=== PATIENT | female | born 1965 | race African-American/Black ===

== ENCOUNTER → 2016-12-12 | Outpatient (CLI) | payer BC ==
[~2016-12-12] MED LIST: Aspirin PO
--- NOTE | 2016-12-13 12:31 | MAMMOGRAPHY REPORT ---
BILATERAL DIGITAL SCREENING MAMMOGRAM TOMOSYNTHESIS WITH CAD: 12/12/2016 CLINICAL HISTORY: Routine screening. Patient has no complaints. TECHNIQUE: Breast tomosynthesis in addition to standard 2D mammography was performed. Current study was also evaluated with a Computer Aided Detection (CAD) system. COMPARISON: Comparison is made to exams dated: 09/08/2015 mammogram, 09/02/2014 mammogram, 09/20/20 12 mammogram, and 09/13/2012 mammogram - [facility]. BREAST COMPOSITION: There are scattered areas of fibroglandular density in both breasts. FINDINGS: There is a newly visualized 7 mm mass in the 6:00 anterior left breast, for which additio nal targeted ultrasound and possible additional mammographic views are recommended. There is a stable circumscribed 7 mm mass in the 7:00 middle one third of the left breast. No other suspicious mass, architectural distortion or cluster of microcalcifications is seen bilaterally. IMPRESSION: ACR BI-RADS CATEGORY 0: INCOMPLETE EVALUATION: NEED ADDITIONAL IMAGING EVALUATION The newly visualized 7 mm mass in the 6:00 anterior left breast needs additional evaluation. The patient will be called to schedule an appointment. Approximately 10% of breast cancers are not detected with mammography. A negative mammographic repor t should not delay biopsy if a clinically suggestive mass is present. Mariam Hernandez M.D. ay/:12/12/2016 16:41:16 Loaf Counter: Lopez Arechiga M, [facility] letter sent: Addl Imaging 0 BI-RADS Code: ACR BI-RADS Category 0: Incomplete Evaluation: Need Additional Imaging Evaluation
== END | disposition home or self-care (01) ==
LOC: C.MAMM 09:50
PROVIDERS: ATTEND Internal Medicine
DX: Z12.31 Encounter for screening mammogram for malignant neoplasm of breast (principal); N63 Unspecified lump in breast

== ENCOUNTER → 2016-12-27 | Outpatient (CLI) | payer BC ==
--- NOTE | 2016-12-27 14:43 | MAMMOGRAPHY REPORT ---
ULTRASOUND OF BOTH BREASTS: 12/27/2016 CLINICAL HISTORY: Call back from screening mammography for a newly visualized 7 mm mass in the 6:00 anterior left breast. COMPARISON: Comparison is made to exams dated: 12/12/2016 mammogram, 09/08/2015 mammogram, 4 mammogram, 09/20/2012 mammogram, and 09/13/2012 mammogram - [facility]. FINDINGS: Real-time high-resolution sonographic evaluation was performed in the 6:00 and 7:00 axes of the left breast. In the 6:00 periareolar left breast there is a parallel anechoic lobulated lon gn simple cyst measuring 7.4 x 2.7 x 5.2 mm. This correlates in size, shape and location as the new ly visualized mammographic mass and is benign. Also seen on the recent screening mammogram is a cir cumscribed oval mass that has been relatively stable in the 6:00 to 7:00 middle one third of the lef t breast that measured 6.9 x 4.6 m. Another anechoic benign simple cyst is seen in the 6:30 left br east, 2 cm from the nipple thought to correlate with this second benign appearing mass. This cyst m easures 4.1 x 3.1 x 5.2 mm, and is also benign. IMPRESSION: ACR BI-RADS CATEGORY 2: BENIGN 2 anechoic benign simple cysts are seen in the 6:00 and 6:30 left breast. The cyst in the 6:00 axis is thought to correlate with the newly visualized mammographic mass, confirming benignity. There i s no sonographic evidence of malignancy in the left breast. Return to annual mammogram screening sc hedule is recommended. These results and recommendations were discussed with the patient at the desi e of the exam. Mariam Hernandez M.D. ay/:12/27/2016 10:50:12 Attending Technologist: Anabella OATES(R)(M), [facility] Paper Grader: Dr. Mariam Hernandez, [facility] letter sent: Normal 1/2 BI-RADS Code: ACR BI-RADS Category 2: Benign
== END | disposition home or self-care (01) ==
LOC: C.MAMM 10:24
PROVIDERS: ATTEND Internal Medicine
DX: N63 Unspecified lump in breast (principal); N60.02 Solitary cyst of left breast

== ENCOUNTER → 2017-01-09 | Day surgery (SDC) | payer BC ==
[~2017-01-09] VITALS: Ht 168.9 cm; Wt 68.2 kg
[~2017-01-09] MED LIST changes: +LIDOCAINE HCL 2% 2 ML VIAL (20MG/ML) ONE; +PROPOFOL IV EMULSION 10 MG/ML 20 ML VIAL IV ONE; +SODIUM CHLORIDE 0.9% 500ML 500 ML IV ONE
[2017-01-09 14:36] VITALS: Ht 168.9 cm; Wt 68.2 kg
--- NOTE | 2017-01-09 15:26 | Endo History and Physical ---
History & Physical Date of Service: Jan 09, 2017. Chief Complaint: family history of colon cancer Referring Physician: History of Present Illness screen' + FH CRC mother/maternal aunt Past Surgical History Hx Cardiac Surgery: No Hx Internal Defibrillator: No Hx Pacemaker: No Hx Abdominal Surgery: Yes (removal of fibroids) Hx of Implantable Prosthesis: No Hx Post-Op Nausea and Vomiting: No Hx Cancer Surgery: No Hx Thoracic Surgery: No Hx Orthopedic: No Hx Urinary Tract Surgery: No Family History Colon CA Social History Smoking Status: Never Smoker Hx Substance Use: No Hx Alcohol Use: No Allergies Coded Allergies: No Known Allergies (Verified , 01/09/17) Current Medications Reported Home Medications Medications Dose Route/Sig Max Daily Dose Days Date Category [Aspirin] 81 Mg PO DAILY 09/08/15 Reported Vital Signs Weight (Kilograms): 68.18 Height (Feet): 5 Height (Inches): 6.5 Date Time Temp Pulse Resp B/P Pulse Ox O2 Delivery O2 Flow Rate FiO2 01/09/17 15:00 36.5 59 16 100/46 100 Room Air Physical Exam AAO x3 Nl s1s2 lungs CTA Abd soft NT/ND + BS - CCE Assessment and Plan colonoscopy
--- NOTE | 2017-01-09 15:48 | Discharge Instructions ---
Endoscopy Patient Instructions Date / Procedure(s) Performed Jan 09, 2017. Colonoscopy Allergy Information Coded Allergies: No Known Allergies (Verified , 01/09/17) Discharge Date / Findings Jan 09, 2017. polyp-removed Medication Instructions Stopped Medication(s): took ASA yesterday Restart Stopped Medication(s): Reported Home Medications Medications Dose Route/Sig Max Daily Dose Days Date Category [Aspirin] 81 Mg PO DAILY 09/08/15 Reported Reported Home Medications Medications Dose Route/Sig Max Daily Dose Days Date Category [Aspirin] 81 Mg PO DAILY 09/08/15 Reported Provider Instructions Activity Restrictions - No exercising or heavy lifting for 24 hours. - Do not drink alcohol the day of the procedure. - Do not drive a car or operate machinery until the day after the procedure. - Do not make any important decisions or sign important papers in 24 hours after the procedure. Following Day: - Return to full activity which may include returning to work/school. Diet Start your diet with liquids and light foods (jello, soup, juice, toast). Then eat your usual diet if not nauseated. Treatment For Common After Affects For mild abdominal pain, bloating, or excessive gas: - Rest - Eat lightly - Lie on right side Follow-Up Information Follow-up with as scheduled Anesthesia Information What You Should Know You have had a procedure that required some medicine to reduce anxiety and discomfort. This treatment is called moderate sedation. After receiving the treatment, you may be sleepy, but you will be able to breathe on your own. The effects of the treatment may last for several hours. Follow these instructions along with Activity/Diet recommendations noted above: * Do NOT do anything where dizziness or clumsiness would be dangerous. * Rest quietly at home today, then you can be up and about tomorrow. * Have a responsible person stay with you the rest of today. * You may have had an I.V. today. If so, you may take the dressing off later today. Recommendations Call your doctor if: * Trouble breathing * Continuous vomiting for more than 24 hours * Temperature above 101 degrees * Severe abdominal pain or bloating * Pain not relieved by pain medicine ordered * There is increased drainage or redness from any incision * A large amount of rectal bleeding greater than 2-3 tablespoons. (If you had a polyp/s removed or have hemorrhoids, a small amount of blood - from the rectum is to be expected.) * You have any unanswered questions or concerns. IN THE EVENT OF A SERIOUS EMERGENCY, GO TO THE NEAREST EMERGENCY ROOM Your discharge instructions were prepared by provider Guanako Ye. Patient Instructions Signature Page Aris Schwartz Patient (or Guardian) Signature/Date: I have read and understand the instructions given to me by my caregivers. Caregiver/RN/Doctor Signature/Date: The above-named patient and/or guardian has received patient instructions on this date. + Original Patient Signature Page (only) stays with chart. Please make copy for patient.
--- NOTE | 2017-01-09 15:55 | GI REPORT ---
Procedure Date: 01/09/2017 3:13 PM Procedure: Colonoscopy Indications: This is the patient's first colonoscopy, Family history of colon cancer in a first-degree relative, Family history of colon cancer in a distant relative Medicines: Propofol per Anesthesia Complications: No immediate complications. Estimated blood loss: Minimal. Estimated Blood Loss: Estimated blood loss was minimal. Procedure: Pre-Anesthesia Assessment: - Prior to the procedure, a History and Physical was performed, and patient medications and allergies were reviewed. The patient's tolerance of previous anesthesia was also reviewed. The risks and benefits of the procedure and the sedation options and risks were discussed with the patient. All questions were answered, and informed consent was obtained. Prior Anticoagulants: The patient has taken no previous anticoagulant or antiplatelet agents. ASA Grade Assessment: I - A normal, healthy patient. After reviewing the risks and benefits, the patient was deemed in satisfactory condition to undergo the procedure. After I obtained informed consent, the scope was passed under direct vision. Throughout the procedure, the patient's blood pressure, pulse, and oxygen saturations were monitored continuously. The scope was introduced through the anus and advanced to the terminal ileum, with identification of the appendiceal orifice and IC valve. The colonoscopy was performed without difficulty. The patient tolerated the procedure well. The quality of the bowel preparation was good. Findings: The perianal and digital rectal examinations were normal. Pertinent negatives include normal sphincter tone, no palpable rectal lesions and no anal lesion or abnormality was detected. Two sessile polyps were found in the rectum. The polyps were 3 to 5 mm in size. These polyps were removed with a cold snare. Resection and retrieval were complete. Estimated blood loss was minimal. Verification of patient identification for the specimen was done by the physician and audio visual technician using the patient's name and medical record number. The exam was otherwise without abnormality. The terminal ileum appeared normal. The retroflexed view of the distal rectum and anal verge was normal and showed no anal or rectal abnormalities. Impression: - Two 3 to 5 mm polyps in the rectum, removed with a cold snare. Resected and retrieved. - The examination was otherwise normal. - The examined portion of the ileum was normal. - The distal rectum and anal verge are normal on retroflexion view. Recommendation: - Discharge patient to home (ambulatory). - Resume regular diet. - Continue present medications. - Await pathology results. - Repeat colonoscopy for surveillance based on pathology results. - Return to referring physician as previously scheduled. MD Guanako Mayes MD 01/09/2017 3:54:15 PM This report has been signed electronically. Note Initiated On: 01/09/2017 3:13 PM I attest to the content of the Intraoperative Record and orders documented therein, exceptions below
[2017-01-09 16:22] VITALS: BP 111/78; PULSE 59; O2SAT 100
--- NOTE | 2017-01-09 16:43 | Anesthesiology Progress Note ---
Anesthesia Post Op Note Date & Time Jan 09, 2017 at 16:42 Vital Signs Pain Intensity: 0 Vital Signs Past 12 Hours Date Time Temp Pulse Resp B/P Pulse Ox O2 Delivery O2 Flow Rate FiO2 01/09/17 16:22 59 16 111/78 100 Room Air 01/09/17 16:11 54 99/61 100 Room Air 01/09/17 15:55 130/76 01/09/17 15:52 65 16 90/61 100 Room Air 01/09/17 15:00 36.5 59 16 100/46 100 Room Air Notes Mental Status: alert / awake / arousable, participated in evaluation Pt Amnestic to Procedure: Yes Nausea / Vomiting: adequately controlled Pain: adequately controlled Airway Patency, RR, SpO2: stable & adequate BP & HR: stable & adequate Hydration State: stable & adequate Anesthetic Complications: no major complications apparent
== END | disposition home or self-care (01) ==
LOC: C.GI 14:41
PROVIDERS: ATTEND Internal Medicine Gastroenterology
DX: Z12.11 Encounter for screening for malignant neoplasm of colon (principal); D12.8 Benign neoplasm of rectum; Z80.0 Family history of malignant neoplasm of digestive organs

== ENCOUNTER 2019-03-25 05:37 | Inpatient (IN) ==
[2019-03-25] MEDS ORDERED: ONDANSETRON INJ 2 MG/ML 2 ML VIAL IV STA (05:55)
[2019-03-25] MEDS ORDERED: KETOROLAC TROMETHAMINE 15 MG/ML VIAL IV STA (05:55)
--- NOTE | 2019-03-25 05:59 | Emergency Department Note ---
History of Present Illness General Chief complaint: Abdominal Pain Stated complaint: STOMACH PAIN Source: patient Mode of arrival: ambulatory Limitations: no limitations History of Present Illness Maximum Pain Intensity: 8 This patient is a 54-year-old female who presents to the emergency department complaining of abdominal pain. The patient reports that her pain started approximately 5 hours ago. She states that the pain woke her up from sleep. She reports diffuse abdominal pain and she rates this discomfort an 8/10. She has been nauseous and had one episode of vomiting. She took some Tums without improvement. She states that she felt okay prior to going to bed last night. She denies any diarrhea, fevers or urinary symptoms. She denies any history of abdominal issues or surgeries. Home Medications Home Medications Medication Instructions Recorded Confirmed Type aspirin [Aspirin Low Dose] PO DAILY 03/25/19 History Allergies Allergy/AdvReac Type Severity Reaction Status Date / Time No Known Allergies Allergy Verified 03/25/19 06:22 Past Med/Surg History Medical History CVA (cerebral vascular accident) Partial small bowel obstruction (Acute) Hepatitis B carrier (Chronic 05/07/11) Protein S deficiency disease (Chronic 05/07/11) No significant active problems Surgical History History of H/O myomectomy Social History Preferred Language: Ug[place] Communication Ability: Effective 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 Beliefs That Will Affect Care: None Current Living Situation: Spouse and Family Other Information That Helps Us Care for You: No Feels Safe at Home: Yes Safety Concerns: Feels Safe At This Time Smoking Status: Never smoker Do You Dip or Chew Tobacco: No Second Hand Exposure: No Tobacco Cessation Education Requested by Patient: No Hx Alcohol Use: No Hx Substance Use: No Review of Systems A total of 10 systems reviewed and were otherwise negative Physical Exam Vital Signs Vital Signs - 24 hr 03/25/19 05:40 03/25/19 06:41 03/25/19 08:16 Temperature 36.5 C 36.5 C Temperature Source Oral Oral Sepsis Recent Fever Within 48 Hours No Sepsis New/Unexplained Change in Mental Status No Sepsis Action Taken by Nursing No Action Required Pulse Rate 63 Pulse Rate [Finger] 59 L 67 Respiratory Rate 16 18 16 Respiratory Effort / Characteristics Non-Labored Spontaneous Non-Labored Spontaneous Respiratory Depth Normal Normal Normal Respiratory Pattern Regular Blood Pressure 116/60 Blood Pressure [Right Arm] 99/52 L 111/70 Blood Pressure Mean 78 Blood Pressure Mean [Right Arm] 67 83 Blood Pressure Position [Right Arm] Lying Pulse Oximetry 100 99 100 Oxygen Delivery Method Room Air Room Air Room Air 03/25/19 09:45 Temperature Temperature Source Sepsis Recent Fever Within 48 Hours Sepsis New/Unexplained Change in Mental Status Sepsis Action Taken by Nursing Pulse Rate Pulse Rate [Finger] 65 Respiratory Rate 16 Respiratory Effort / Characteristics Respiratory Depth Respiratory Pattern Blood Pressure Blood Pressure [Right Arm] 104/60 Blood Pressure Mean Blood Pressure Mean [Right Arm] 74 Blood Pressure Position [Right Arm] Pulse Oximetry 100 Oxygen Delivery Method Room Air VITALS: Vitals are noted on the nurse's note and reviewed by myself. Vital signs stable. GENERAL: This is a 54-year-old female, in no acute distress, nondiaphoretic, well-developed well-nourished. SKIN: The skin was without rashes. EYES: Pupils equal round and reactive to light and accommodation. MOUTH: Mucous membranes moist. Tonsils are not enlarged. Pharynx without erythema or exudate. NECK: Supple without nuchal rigidity. No lymphadenopathy. HEART: Regular rate and rhythm without murmurs gallops or rubs. LUNGS: Clear to auscultation bilaterally without wheezes, rales or rhonchi. ABDOMEN: Positive bowel sounds x 4. Soft, nondistended. There is tenderness to palpation in the suprapubic region of the abdomen. No guarding or rebound tenderness. EXTREMITIES: No peripheral edema. NEURO: Patient was alert and oriented to person place and time. Course Consultations Consultation #1: Dr. Tanner - General surgery Consultation #2: Delma Fajardo - [facility] [place] Administered Medications Sodium Chloride (Nss 1000ml) 1,000 mls @ 80 mls/hr IV .[id number] PARVEZ Stop: 04/24/19 11:12 Last Admin: 03/26/19 00:05 Dose: 80 mls/hr Documented by: [id number] Infusion: 03/26/19 00:05 Dose: 80 mls/hr Documented by: [id number] Infusion: 03/25/19 22:29 Dose: 80 mls/hr Documented by: [id number] Admin: 03/25/19 11:40 Dose: 80 mls/hr Documented by: [id number] Polyethylene Glycol (Miralax Powder Packet) 17 gm PO DAILY PARVEZ Stop: 04/24/19 11:59 Last Admin: 03/25/19 11:48 Dose: 17 gm Documented by: [id number] Discontinued Medications Bisacodyl (Dulcolax) 10 mg KS NOW STA Stop: 03/25/19 11:14 Last Admin: 03/25/19 11:47 Dose: 10 mg Documented by: [id number] Sodium Chloride (Nss 1000ml) 1,000 mls @ 999 mls/hr IV .Q1H1M ONE Stop: 03/25/19 08:09 Last Infusion: 03/25/19 08:50 Dose: 0 mls/hr Documented by: [id number] Admin: 03/25/19 07:17 Dose: 999 mls/hr Documented by: [id number] Ioversol (Optiray 320 100ml) 93 ml IV ONCE PRN PRN Reason: Interaction Checking Stop: 03/29/19 06:36 Last Admin: 03/25/19 06:37 Dose: 93 ml Documented by: [id number] Ketorolac Tromethamine (Toradol) 15 mg IV NOW STA Stop: 03/25/19 05:56 Last Admin: 03/25/19 06:11 Dose: 15 mg Documented by: [id number] Ondansetron HCl (Zofran) 4 mg IV NOW STA Stop: 03/25/19 05:56 Last Admin: 03/25/19 06:11 Dose: 4 mg Documented by: [id number] Polyethylene Glycol (Miralax Powder Packet) 238 gm PO TODAY@1530 PARVEZ Stop: 03/25/19 23:59 Last Admin: 03/25/19 16:46 Dose: 238 gm Documented by: [id number] Medical Decision Making Differential Diagnosis Differential diagnosis includes diverticulitis, colitis, UTI, kidney stone, uterine fibroids, ovarian cyst, among others. Home Medications Current Medication List: was personally reviewed by me Laboratory Data Attestation: I reviewed the patient's lab results. Result diagrams: 03/25/19 06:06 03/25/19 06:06 Lab Results 03/25/19 03/25/19 03/25/19 Range/Units 05:50 05:50 06:06 WBC 3.96 L (4.8-10.8) K/uL RBC 4.08 L (4.2-5.4) M/uL Hgb 12.0 (12.0-16.0) g/dL Hct 36.0 L (37-47) % MCV 88.2 (80-100) fL MCH 29.4 (25-34) pg MCHC 33.3 (32-36) g/dL RDW Std Deviation 40.8 (36.4-46.3) fL RDW Coeff of Grayson 12.7 (11.5-14.5) % Plt Count 227 (130-400) K/uL MPV 10.4 (7.4-10.4) fL Immature Gran % (Auto) 0.0 % Neut % (Auto) 57.7 % Lymph % (Auto) 35.9 % Crawford % (Auto) 5.3 % Eos % (Auto) 0.8 % Baso % (Auto) 0.3 % Immature Gran # (Auto) 0.00 (0.00-0.02) K/uL Neut # (Auto) 2.29 (1.4-6.5) K/uL Lymph # (Auto) 1.42 (1.2-3.4) K/uL Crawford # (Auto) 0.21 (0.11-0.59) K/uL Eos # (Auto) 0.03 (0-0.5) K/uL Baso # (Auto) 0.01 (0-0.2) K/uL Sodium (136-145) mmol/L Potassium (3.5-5.1) mmol/L Chloride (98-107) mmol/L Carbon Dioxide (21-32) mmol/L Anion Gap (3-11) BUN (7-18) mg/dl Creatinine (0.6-1.2) mg/dl Est Cr Clr Drug Dosing ml/min Est GFR ( Amer) Est GFR (Non-Af Amer) BUN/Creatinine Ratio (10-20) Glucose (70-99) mg/dl Calcium (8.5-10.1) mg/dl Total Bilirubin (0.2-1) mg/dl AST (15-37) U/L ALT (12-78) U/L Alkaline Phosphatase (45-117) U/L Total Protein (6.4-8.2) gm/dl Albumin (3.4-5.0) gm/dl Globulin (2.5-4.0) gm/dl Albumin/Globulin Ratio (0.9-2) Lipase (73-393) U/L Urine Color Yellow Urine Appearance Slightly Cloudy (Clear) Urine pH 8.0 H (4.5-7.5) Ur Specific [place] 1.015 (1.000-1.030) Urine Protein Negative (Negative) Urine Glucose (UA) Negative (Negative) Urine Ketones Negative (Negative) Urine Blood Negative (Negative) Urine Nitrite Negative (Negative) Urine Bilirubin Negative (Negative) Urine Urobilinogen Negative (Negative) Ur Leukocyte Esterase Negative (Negative) Urine Test Negative (Negative) 03/25/19 Range/Units 06:06 WBC (4.8-10.8) K/uL RBC (4.2-5.4) M/uL Hgb (12.0-16.0) g/dL Hct (37-47) % MCV (80-100) fL MCH (25-34) pg MCHC (32-36) g/dL RDW Std Deviation (36.4-46.3) fL RDW Coeff of Grayson (11.5-14.5) % Plt Count (130-400) K/uL MPV (7.4-10.4) fL Immature Gran % (Auto) % Neut % (Auto) % Lymph % (Auto) % Crawford % (Auto) % Eos % (Auto) % Baso % (Auto) % Immature Gran # (Auto) (0.00-0.02) K/uL Neut # (Auto) (1.4-6.5) K/uL Lymph # (Auto) (1.2-3.4) K/uL Crawford # (Auto) (0.11-0.59) K/uL Eos # (Auto) (0-0.5) K/uL Baso # (Auto) (0-0.2) K/uL Sodium 141 (136-145) mmol/L Potassium 3.7 (3.5-5.1) mmol/L Chloride 106 (98-107) mmol/L Carbon Dioxide 32 (21-32) mmol/L Anion Gap 3.0 (3-11) BUN 16 (7-18) mg/dl Creatinine 0.70 (0.6-1.2) mg/dl Est Cr Clr Drug Dosing 91.4 ml/min Est GFR ( Amer) 115.5 Est GFR (Non-Af Amer) 99.6 BUN/Creatinine Ratio 22.3 H (10-20) Glucose 88 (70-99) mg/dl Calcium 9.3 (8.5-10.1) mg/dl Total Bilirubin 0.5 (0.2-1) mg/dl AST 17 (15-37) U/L ALT 22 (12-78) U/L Alkaline Phosphatase 76 (45-117) U/L Total Protein 7.9 (6.4-8.2) gm/dl Albumin 3.8 (3.4-5.0) gm/dl Globulin 4.1 H (2.5-4.0) gm/dl Albumin/Globulin Ratio 0.9 (0.9-2) Lipase 98 (73-393) U/L Urine Color Urine Appearance (Clear) Urine pH (4.5-7.5) Ur Specific [place] (1.000-1.030) Urine Protein (Negative) Urine Glucose (UA) (Negative) Urine Ketones (Negative) Urine Blood (Negative) Urine Nitrite (Negative) Urine Bilirubin (Negative) Urine Urobilinogen (Negative) Ur Leukocyte Esterase (Negative) Urine Test (Negative) Imaging Data Attestation: I personally reviewed and interpreted this imaging study as follows: Radiologist's Impression: CT abd pelvis IV con only FINDINGS: Lower chest: There are minor dependent atelectatic changes. Liver: There is a 7 mm left lobe hypodensity, likely representing a cyst. Gallbladder: Unremarkable. Spleen: Normal in size and attenuation. Pancreas: Unremarkable. Adrenal glands: Unremarkable. Kidneys: There is symmetric renal cortical enhancement. The kidneys are normal in size without hydronephrosis. Bowel: There is fecal retention. There is no evidence for acute diverticulitis. The appendix appears normal. There are dilated small bowel loops with mild wall thickening. The distal ileum is of normal caliber. The findings are likely secondary to a early/partial small bowel obstruction, although a focal small bowel enteritis could potentially appear similar. There is a slight mesenteric swirl pattern and the distal ileum appears somewhat stretched. An internal hernia cannot be excluded. Clinical and imaging follow-up is recommended. Peritoneum: There is trace free pelvic fluid. No free intraperitoneal air is visualized Vasculature: The abdominal aorta is normal in course and caliber. Adenopathy: None. Pelvic viscera: The bladder, and pelvic viscera are unremarkable. Skeletal structures: No destructive osseous lesions are seen. IMPRESSION: 1. Mildly dilated proximal and mid abdominal small bowel loops with normal caliber distal small bowel. There is associated mild bowel wall thickening. The findings are likely secondary to an early/partial small bowel obstruction 2. Normal appendix 3. No evidence of acute diverticulitis 4. Fecal retention 5. No evidence of free intraperitoneal air Blood Pressure Blood Pressure Findings: Normal blood pressure Blood Pressure Disposition: did not require urgent referral MDM Narrative The patient is a 54-year-old female who presents today complaining of abdominal pain and vomiting. Labs revealed no leukocytosis or concerning anemia. There were no concerning electrolyte abnormalities. Kidney function within normal limits. Urinalysis not suggestive of infection. CT scan was performed and shows evidence of a partial or early small bowel obstruction. General surgery was consulted and recommended admission to the hospitalist. The [facility] hospitalist service was consulted and agrees to evaluate the patient for admission/observation. Impression & Plan Partial small bowel obstruction Discharge Plan Visit Data *Final* Discharge Date/Time: 03/25/19 10:43 Chief Complaint: Abdominal Pain Stated Complaint: STOMACH PAIN ED Provider: [facility] ED Midlevel Provider: Nadya Segovia Discharge Problem: Partial small bowel obstruction Patient Disposition: Admitted As Inpatient Discharge Instructions Interventions: ED Discharge Assessment Last Done: 03/25/19 10:43
[2019-03-25 06:06] LABS: Appearance Urine Slightly Cloudy (Clear); Bilirubin Urine Negative (Negative); Blood Urine Negative (Negative); Color Urine Yellow; Glucose Urine UA Negative (Negative); Ketones Urine Negative (Negative); Leukocyte Esterase Urine Negative (Negative); Nitrite Urine Negative (Negative); Protein Urine Negative (Negative); Specific Gravity Urine 1.015 (1.000-1.030); Urobilinogen Urine Negative (Negative)
[2019-03-25 06:09] LABS: Pregnancy Test, Urine Negative (Negative)
[2019-03-25 06:14] LABS: Basophils # (auto) 0.01 K/uL (0-0.2); Basophils % (auto) 0.3 %; Eosinophils # (auto) 0.03 K/uL (0-0.5); Eosinophils % (auto) 0.8 %; Lymphocytes # (auto) 1.42 K/uL (1.2-3.4); Lymphocytes % (auto) 35.9 %; Mean Corpuscular Hgb Conc 33.3 g/dL (32-36); Mean Corpuscular Volume 88.2 fL (80-100); Mean Platelet Volume 10.4 fL (7.4-10.4); Monocytes # (auto) 0.21 K/uL (0.11-0.59); Monocytes % (auto) 5.3 %; Neutrophils # (auto) 2.29 K/uL (1.4-6.5); Neutrophils % (auto) 57.7 %; Platelet Count 227 K/uL (130-400); RDW Coefficient of Variation 12.7 % (11.5-14.5); RDW Standard Deviation 40.8 fL (36.4-46.3); Red Blood Count 4.08 M/uL (4.2-5.4); White Blood Count 3.96 K/uL (4.8-10.8)
[2019-03-25 06:31] LABS: Albumin Level 3.8 gm/dl (3.4-5.0); BUN Creatinine Ratio 22.3 (10-20); Calcium 9.3 mg/dl (8.5-10.1); Creatinine Clr Calc Pharmacy 91.4 ml/min; Est GFR (African American) 115.5; Est GFR (Non-African American) 99.6; Potassium 3.7 mmol/L (3.5-5.1)
[2019-03-25 06:34] LABS: Albumin Globulin Ratio 0.9 (0.9-2); Bilirubin,Total 0.5 mg/dl (0.2-1); Globulin 4.1 gm/dl (2.5-4.0); Total Protein 7.9 gm/dl (6.4-8.2)
[2019-03-25] MEDS ORDERED: IOVERSOL 100ml IV PRN (06:37)
--- NOTE | 2019-03-25 06:57 | CT Scan Report ---
CT abd pelvis IV con only CLINICAL HISTORY: Abdominal pain and vomiting COMPARISON STUDY: None. TECHNIQUE: The patient was scanned in a dynamic helical fashion during intravenous administration of 93 cc of Optiray 320. A dose lowering technique was utilized adhering to the principles of ALARA. CT DOSE: 330.63 mGy.cm FINDINGS: Lower chest: There are minor dependent atelectatic changes. Liver: There is a 7 mm left lobe hypodensity, likely representing a cyst. Gallbladder: Unremarkable. Spleen: Normal in size and attenuation. Pancreas: Unremarkable. Adrenal glands: Unremarkable. Kidneys: There is symmetric renal cortical enhancement. The kidneys are normal in size without hydron ephrosis. Bowel: There is fecal retention. There is no evidence for acute diverticulitis. The appendix appears normal. There are dilated small bowel loops with mild wall thickening. The distal ileum is of normal caliber. The findings are likely secondary to a early/partial small bowel obstruction, although a foc al small bowel enteritis could potentially appear similar. There is a slight mesenteric swirl pattern and the distal ileum appears somewhat stretched. An internal hernia cannot be excluded. Clinical and imaging follow-up is recommended. Peritoneum: There is trace free pelvic fluid. No free intraperitoneal air is visualized Vasculature: The abdominal aorta is normal in course and caliber. Adenopathy: None. Pelvic viscera: The bladder, and pelvic viscera are unremarkable. Skeletal structures: No destructive osseous lesions are seen. IMPRESSION: 1. Mildly dilated proximal and mid abdominal small bowel loops with normal caliber distal small bowel . There is associated mild bowel wall thickening. The findings are likely secondary to an early/parti al small bowel obstruction 2. Normal appendix 3. No evidence of acute diverticulitis 4. Fecal retention 5. No evidence of free intraperitoneal air Electronically signed by: Gasper Bay M.D. 03/25/2019 6:56 AM
[2019-03-25] MEDS ORDERED: SODIUM CHLORIDE 0.9% 1000ML 1,000 ML IV ONE (07:09)
--- NOTE | 2019-03-25 10:19 | History & Physical Report ---
Date of Service March 25, 2019 Assessment & Plan (1) Constipation: (2) Partial small bowel obstruction: - Admit to med surg - General Surgery consulted - spoke with Dr. Tanner. He requests admission to medical service - Pt with multiple previous abd surgeries, possible partial SBO seen but may be more likely severe constipation as seen on CT scan, no electrolyte abnormalities, no WBC, nausea improved with zofran, minimal abd pain currently. - Will do conservative measures for now -- Allow clears, Miralax, Dulcolax pr now (3) H/O myomectomy: - 2009, noted (4) History of : - x 1 in 2010 (5) CVA (cerebral vascular accident): - 2007 - Takes ASA 81 mg daily, continue - No residual symptoms (6) Protein S deficiency disease: - Noted (7) Hepatitis B carrier: - Noted, stable. (8) DVT prophylaxis: Teds, ambulatory. History of Present Illness Primary Care Provider: Rom Hoffman MD This is a 54 yo F with PMHx of Myomectomy in 2009, history of in 2010, stroke in 2007 which she is on a baby aspirin daily for, protein S deficiency, and hepatitis B carrier who presents with acute onset abdominal pain around 1 AM this morning. Patient has never had abdominal pain like this before. States that it awoke her from sleep and is located in the RLQ and comes in waves. She had one episode of vomiting this morning, no dry heaves or diarrhea. Patient denies hematemesis, melena, bright red blood per rectum. She has felt mildly constipated but had a small bowel movement yesterday morning. On CT scan there is a possible partial small bowel obstruction. Electrolytes and CBC are WNL. General surgery service was contacted by the ER and are on consult. Allergies Allergy/AdvReac Type Severity Reaction Status Date / Time No Known Allergies Allergy Verified 03/25/19 06:22 Home Medications Home Medications Medication Instructions Recorded Confirmed Type aspirin [Aspirin Low Dose] PO DAILY 03/25/19 History Past Med/Surg History Medical History CVA (cerebral vascular accident) Partial small bowel obstruction (Acute) Hepatitis B carrier (Chronic 05/07/11) Protein S deficiency disease (Chronic 05/07/11) No significant active problems Surgical History History of H/O myomectomy Social History Preferred Language: Maltese Communication Ability: Effective 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 Beliefs That Will Affect Care: None Current Living Situation: Spouse and Family Other Information That Helps Us Care for You: No Feels Safe at Home: Yes Safety Concerns: Feels Safe At This Time Smoking Status: Never smoker Do You Dip or Chew Tobacco: No Second Hand Exposure: No Tobacco Cessation Education Requested by Patient: No Hx Alcohol Use: No Hx Substance Use: No Review of Systems Review of Systems: Constitutional: No fever, sweats or chills Eyes: No diplopia, no worsening or blurred vision ENT: normal hearing, no trouble swallowing Respiratory: No cough, sputum, dyspnea at rest or on exertion Cardiovascular: No chest pain, tightness or palpitations Abdomen: As per HPI Musculoskeletal: No joint pain, calf pain, swelling Neurologic: No weakness, numbness/tingling, or balance problems Psychiatric: No anxiety or depression Skin: No rash or itch Physical Exam Physical Exam: General: awake, alert, no apparent distress, -[place] female, appears much younger than stated age. Head: Normocephalic, atraumatic ENT: PERRL, EOMI, no pharyngeal exudate, mucous membranes moist Chest: Clear to auscultation, on room air, no adventitious breath sounds Cardiac: Regular rate and rhythm, no murmur, no JVD, normal peripheral pulses, good capillary refill Abdominal: Hypoactive x 4 quadrants, soft, mildly distended on the right side, minimally tender to palpation in the RLQ, no rebound, guarding. Extremities: Normal inspection, no peripheral edema or erythema, calfs nontender to palpation Psych: Normal mood and affect Neuro: AAO x 3, strength intact bilaterally and related 5/5, no motor deficits, speech is clear, no peripheral sensory deficits Skin: no rash or erythema Results & Data Vital Signs (Past 12 Hours) Vital Signs Temp Pulse Pulse Resp BP BP Pulse Ox 03/25/19 09:45 65 16 104/60 100 03/25/19 08:16 36.5 C 67 16 111/70 100 03/25/19 06:41 59 L 18 99/52 L 99 03/25/19 05:40 36.5 C 63 16 116/[address] abd pelvis IV con only CLINICAL HISTORY: Abdominal pain and vomiting COMPARISON STUDY: None. TECHNIQUE: The patient was scanned in a dynamic helical fashion during intravenous administration of 93 cc of Optiray 320. A dose lowering technique was utilized adhering to the principles of ALARA. CT DOSE: 330.63 mGy.cm FINDINGS: Lower chest: There are minor dependent atelectatic changes. Liver: There is a 7 mm left lobe hypodensity, likely representing a cyst. Gallbladder: Unremarkable. Spleen: Normal in size and attenuation. Pancreas: Unremarkable. Adrenal glands: Unremarkable. Kidneys: There is symmetric renal cortical enhancement. The kidneys are normal in size without hydronephrosis. Bowel: There is fecal retention. There is no evidence for acute diverticulitis. The appendix appears normal. There are dilated small bowel loops with mild wall thickening. The distal ileum is of normal caliber. The findings are likely secondary to a early/partial small bowel obstruction, although a focal small bowel enteritis could potentially appear similar. There is a slight mesenteric swirl pattern and the distal ileum appears somewhat stretched. An internal hernia cannot be excluded. Clinical and imaging follow-up is recommended. Peritoneum: There is trace free pelvic fluid. No free intraperitoneal air is visualized Vasculature: The abdominal aorta is normal in course and caliber. Adenopathy: None. Pelvic viscera: The bladder, and pelvic viscera are unremarkable. Skeletal structures: No destructive osseous lesions are seen. IMPRESSION: 1. Mildly dilated proximal and mid abdominal small bowel loops with normal caliber distal small bowel. There is associated mild bowel wall thickening. The findings are likely secondary to an early/partial small bowel obstruction 2. Normal appendix 3. No evidence of acute diverticulitis 4. Fecal retention 5. No evidence of free intraperitoneal air Supervising Physician Co-Signing Physician Notes PA Physician Supervision Note: I interviewed and examined the patient. Discussed with Tara Fajardo PAC and agree with findings and plan as documented in the note. Any exceptions or clarifications are listed here: None Patient was seen and interviewed in the emergency department presence of her . She only has mild abdominal pain. She notes she has constipation as medical problems. Her pain is been improved after being medicated. Pain was mostly below her bellybutton. Signs were reviewed abdomen is with hypoactive bowel sounds soft and only tender to deep palpation of lower quadrants. I personally reviewed CT scan it looks to be that there is a significant amount of fecal burden in her abdomen Patient be brought in for small bowel obstruction with conservative management and attempt to increase in stool production Documented By: Jamaal Washington PG Care Time/CCT Total # of Minutes Spent Total Time Spent with Patient: Total time spent is greater than 50% in coordination of care (as documented) at patient's floor/unit and/or counseling patient:
--- NOTE | 2019-03-25 10:59 | Surgery Consultation ---
Date of Consultation March 25, 2019 Assessment & Plan (1) Partial small bowel obstruction: pt is a 54 year-old female who presents to ER with one day history abdominal pain, IMP: abdominal pain, possible GI infection, or partial SBO Plan, I agree with hospitalist admit pt to hospital medical treatment first, NPO, IV fluid, consult GI to R/O IBD repeat labs in am, will F/U History of Present Illness History of Present Illness CC: abdominal pain HPI: pt is a 54 year old female who presents to ER with one day history acute abdominal pain with nausea and vomiting, the pain is located at [place]-umbilical area, now pt said she feels much better, no significant abdominal pain now, last BM yesterday, pt denies fever, no bloody stool, no diarrhea, pt had CT scan at Er dx possible partial SBO, Allergies Allergy/AdvReac Type Severity Reaction Status Date / Time No Known Allergies Allergy Verified 03/25/19 06:22 Home Medications Home Medications Medication Instructions Recorded Confirmed Type aspirin [Aspirin Low Dose] PO DAILY 03/25/19 History Patient History Medical History CVA (cerebral vascular accident) Partial small bowel obstruction (Acute) Hepatitis B carrier (Chronic 05/07/11) Protein S deficiency disease (Chronic 05/07/11) No significant active problems Surgical History History of H/O myomectomy Social History Preferred Language: Belizean Communication Ability: Effective 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 Beliefs That Will Affect Care: None Current Living Situation: Spouse and Family Other Information That Helps Us Care for You: No Feels Safe at Home: Yes Safety Concerns: Feels Safe At This Time Smoking Status: Never smoker Do You Dip or Chew Tobacco: No Second Hand Exposure: No Tobacco Cessation Education Requested by Patient: No Hx Alcohol Use: No Hx Substance Use: No Review of Systems Review of Systems: All systems reviewed & are unremarkable except as noted in HPI & below Constitutional: as per Subjective / HPI Ear, Nose, Mouth, Throat: as per Subjective / HPI Respiratory: as per Subjective / HPI Cardiovascular: as per Subjective / HPI Gastrointestinal: as per Subjective / HPI Genitourinary: as per Subjective / HPI Musculoskeletal: as per Subjective / HPI Neurologic: as per Subjective / HPI Psychiatric: as per Subjective / HPI Endocrine: as per Subjective / HPI Hematologic / Lymphatic: as per Subjective / HPI Physical Exam Constitutional: WD/WN, vitals as above well developed and well nourished ENMT: external ear and nose normal, oropharynx normal Neck: trachea midline, no thyromegaly Respiratory: normal respiratory effort, lungs clear to auscultation normal respiratory effort Cardiovascular: RRR, no murmur, no edema Rate/Rhythm: regular rate and regular rhythm Heart Sounds: normal S2 Gastrointestinal (Abdomen): normal bowel sounds, soft, nontender, no hepatosplenomegaly Inspection/Auscultation: abdomen normal to inspection no tenderness now, no distend Neurologic: patellar DTR's 2+ bilat, sensation intact Psychiatric: A+Ox3, euthymic affect Orientation: alert and oriented x 3 Lymphatic: no cervical or axillary lymphadenopathy Results & Data Vital Signs (Past 12 Hours) Vital Signs Temp Pulse Pulse Resp BP BP Pulse Ox 03/25/19 10:40 61 16 100/53 L 100 03/25/19 09:45 65 16 104/60 100 03/25/19 08:16 36.5 C 67 16 111/70 100 03/25/19 06:41 59 L 18 99/52 L 99 03/25/19 05:40 36.5 C 63 16 116/60 100 Laboratory Results Abnormal lab results 03/25/19 03/25/19 03/25/19 Range/Units 05:50 06:06 06:06 WBC 3.96 L (4.8-10.8) K/uL RBC 4.08 L (4.2-5.4) M/uL Hct 36.0 L (37-47) % BUN/Creatinine Ratio 22.3 H (10-20) Globulin 4.1 H (2.5-4.0) gm/dl Urine pH 8.0 H (4.5-7.5) Diagnostic Findings CT abd pelvis IV con only CLINICAL HISTORY: Abdominal pain and vomiting COMPARISON STUDY: None. TECHNIQUE: The patient was scanned in a dynamic helical fashion during intravenous administration of 93 cc of Optiray 320. A dose lowering technique was utilized adhering to the principles of ALARA. CT DOSE: 330.63 mGy.cm FINDINGS: Lower chest: There are minor dependent atelectatic changes. Liver: There is a 7 mm left lobe hypodensity, likely representing a cyst. Gallbladder: Unremarkable. Spleen: Normal in size and attenuation. Pancreas: Unremarkable. Adrenal glands: Unremarkable. Kidneys: There is symmetric renal cortical enhancement. The kidneys are normal in size without hydronephrosis. Bowel: There is fecal retention. There is no evidence for acute diverticulitis. The appendix appears normal. There are dilated small bowel loops with mild wall thickening. The distal ileum is of normal caliber. The findings are likely secondary to a early/partial small bowel obstruction, although a focal small bowel enteritis could potentially appear similar. There is a slight mesenteric swirl pattern and the distal ileum appears somewhat stretched. An internal hernia cannot be excluded. Clinical and imaging follow-up is recommended. Peritoneum: There is trace free pelvic fluid. No free intraperitoneal air is visualized Vasculature: The abdominal aorta is normal in course and caliber. Adenopathy: None. Pelvic viscera: The bladder, and pelvic viscera are unremarkable. Skeletal structures: No destructive osseous lesions are seen. IMPRESSION: 1. Mildly dilated proximal and mid abdominal small bowel loops with normal c aliber distal small bowel. There is associated mild bowel wall thickening. The findings are likely secondary to an early/partial small bowel obstruction 2. Normal appendix 3. No evidence of acute diverticulitis 4. Fecal retention 5. No evidence of free intraperitoneal air
[2019-03-25] MEDS ORDERED: ONDANSETRON INJ 2 MG/ML 2 ML VIAL IV PRN (11:13)
[2019-03-25] MEDS ORDERED: BISACODYL 10 MG SUPP PR STA (11:13)
[2019-03-25] MEDS: SODIUM CHLORIDE 0.9% 1000ML 1,000 ML IV SCH (11:40)
[2019-03-25] MEDS: POLYETHYLENE (MIRALAX) 17 GM PACK PO SCH (11:48)
--- NOTE | 2019-03-25 15:24 | Gastrointestinal Consultation ---
Date of Consultation March 25, 2019 Assessment & Plan (1) Partial small bowel obstruction: She could have partial SBO for example from adhesions or IBD but ileum normal 2016 and no previous abd issues to indicate IBD. If patient improves then recommend outpt SBFT. If SBO worsens then may need expl lap but currently this is is clinically improved. constipation--this may be primary source of pain. Will give miralax 238 gm in 64 ounces of gatorade to purge gut abd pain--SBO and /or constipation History of Present Illness Reason for Consultation: R/O IBD Requesting Physician: DR Tanner Attending Physician: Jamaal Washington MD History of Present Illness cc abd pain ,constipation HPI Reviewed [facility] and [facility] EMR. Noted no GI OV but Dr Ye did colo to [facility] for. CRC screening.12/2016 and removed 2 rectal polyps hyperplastic. The patient tends to be constipated and more so recently. She developed acute diffuse abd pain but worst lower abdomen. Pain up to 8/10 much better now. Small bm today. Some nausea no vomiting. Has had several abdominal surgery in past. WBC nl, CT a/p fecal recention, dilated SB ? SBO. 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 Beliefs That Will Affect Care: None Current Living Situation: Spouse and Family Other Information That Helps Us Care for You: No Feels Safe at Home: Yes Safety Concerns: Feels Safe At This Time Smoking Status: Never smoker Do You Dip or Chew Tobacco: No Second Hand Exposure: No Tobacco Cessation Education Requested by Patient: No Hx Alcohol Use: No Hx Substance Use: No Review of Systems Review of Systems: All systems reviewed & are unremarkable except as noted in HPI & below Physical Exam Constitutional: WD/WN, vitals as above Eyes: PERRL, conjunctivae normal, anicteric sclerae ENMT: external ear and nose normal, oropharynx normal Neck: normal visual inspection and trachea midline Respiratory: normal respiratory effort, lungs clear to auscultation Cardiovascular: RRR, no murmur, no edema Gastrointestinal (Abdomen): pos bs, soft, no guarding nor rebound Skin: no rashes, warm and dry Neurologic: PERRL, EOMI, accommodation nl, no face palsy, no dysarthria Psychiatric: A+Ox3, euthymic affect Results & Data Vital Signs (Past 12 Hours) Vital Signs Temp Pulse Pulse Resp BP BP BP 03/25/19 15:06 36.7 C 57 L 17 94/54 L 03/25/19 11:15 36.5 C 52 L 15 92/58 L 03/25/19 11:10 36.5 C 52 L 15 92/58 L 03/25/19 10:40 61 16 100/53 L 03/25/19 09:45 65 16 104/60 03/25/19 08:16 36.5 C 67 16 111/70 03/25/19 06:41 59 L 18 99/52 L 03/25/19 05:40 36.5 C 63 16 116/60 Pulse Ox 03/25/19 15:06 95 03/25/19 11:15 93 03/25/19 11:10 93 03/25/19 10:40 100 03/25/19 09:45 100 03/25/19 08:16 100 03/25/19 06:41 99 03/25/19 05:40 100
[2019-03-25] MEDS ORDERED: POLYETHYLENE (MIRALAX) 17 GM PACK PO SCH (15:30)
[2019-03-26] MEDS: SODIUM CHLORIDE 0.9% 1000ML 1,000 ML IV SCH ×2 (00:05→21:33)
[2019-03-26 07:57] LABS: Hematocrit (blood only) 32.5 % (37-47); Hemoglobin 10.7 g/dL (12.0-16.0); Mean Corpuscular Hgb Conc 32.9 g/dL (32-36); Mean Corpuscular Volume 88.1 fL (80-100); Mean Platelet Volume 10.7 fL (7.4-10.4); Platelet Count 189 K/uL (130-400); RDW Coefficient of Variation 12.8 % (11.5-14.5); RDW Standard Deviation 41.3 fL (36.4-46.3); Red Blood Count 3.69 M/uL (4.2-5.4); White Blood Count 2.18 K/uL (4.8-10.8)
[2019-03-26 08:26] LABS: Basophils # (auto) 0.01 K/uL (0-0.2); Basophils % (auto) 0.5 %; Eosinophils # (auto) 0.07 K/uL (0-0.5); Eosinophils % (auto) 3.2 %; Lymphocytes # (auto) 1.25 K/uL (1.2-3.4); Lymphocytes % (auto) 57.3 %; Monocytes # (auto) 0.18 K/uL (0.11-0.59); Monocytes % (auto) 8.3 %; Neutrophils # (auto) 0.67 K/uL (1.4-6.5); Neutrophils % (auto) 30.7 %
[2019-03-26 08:42] LABS: Albumin Globulin Ratio 0.9 (0.9-2); Albumin Level 3.1 gm/dl (3.4-5.0); BUN Creatinine Ratio 11.1 (10-20); Bilirubin,Total 0.7 mg/dl (0.2-1); Calcium 8.3 mg/dl (8.5-10.1); Creatinine Clr Calc Pharmacy 92.7 ml/min; Est GFR (Non-African American) 100.1; Globulin 3.3 gm/dl (2.5-4.0); Potassium 3.7 mmol/L (3.5-5.1); Total Protein 6.4 gm/dl (6.4-8.2)
[2019-03-26] MEDS: POLYETHYLENE (MIRALAX) 17 GM PACK PO SCH (09:37)
--- NOTE | 2019-03-26 11:13 | Surgery Progress Note ---
Date of Service pt is doing fine, no abdominal pain, no nausea, no vomiting, no fever, passed BM x3 March 26, 2019 Assessment & Plan (1) Partial small bowel obstruction: pt is a 54 year-old female who presents to ER with one day history abdominal pain, IMP: abdominal pain, possible GI infection, or partial SBO Plan, I agree with hospitalist admit pt to hospital medical treatment first, NPO, IV fluid, consult GI to R/O IBD repeat labs in am, will F/U 03/26/2019 11:12am doing fine, no abdominal pain, sign off today, please call with questions, thanks, Physical Exam Constitutional: WD/WN, vitals as above well developed and well nourished ENMT: external ear and nose normal, oropharynx normal Neck: trachea midline, no thyromegaly Respiratory: normal respiratory effort, lungs clear to auscultation normal respiratory effort Cardiovascular: RRR, no murmur, no edema Rate/Rhythm: regular rate and regular rhythm Heart Sounds: normal S2 Gastrointestinal (Abdomen): normal bowel sounds, soft, nontender, no hepatosplenomegaly Inspection/Auscultation: abdomen normal to inspection NT, ND , soft, BS+ Neurologic: patellar DTR's 2+ bilat, sensation intact Psychiatric: A+Ox3, euthymic affect Orientation: alert and oriented x 3 Lymphatic: no cervical or axillary lymphadenopathy Results & Data Vital Signs (Past 12 Hours) Vital Signs Temp Pulse Pulse Resp BP BP Pulse Ox 03/26/19 07:40 36.7 C 56 L 16 102/69 99 03/25/19 23:30 36.6 C 55 L 53 L 16 94/60 L 91/52 L 96 Laboratory Results Abnormal lab results 03/26/19 03/26/19 Range/Units 07:42 07:42 WBC 2.18 L (4.8-10.8) K/uL RBC 3.69 L (4.2-5.4) M/uL Hgb 10.7 L (12.0-16.0) g/dL Hct 32.5 L (37-47) % MPV 10.7 H (7.4-10.4) fL Neut # (Auto) 0.67 L* (1.4-6.5) K/uL Chloride 112 H (98-107) mmol/L Calcium 8.3 L (8.5-10.1) mg/dl Albumin 3.1 L (3.4-5.0) gm/dl
--- NOTE | 2019-03-26 12:22 | Hospitalist Progress Note ---
Date of Service March 26, 2019 Assessment & Plan (1) Partial small bowel obstruction: - CT A/P showed mildly dilated proximal and mid abd small bowel loops -- concern for partial SBO. - General surgery and GI both consulted, appreciate input. - Resolved with Miralax PO and Dulcolax [place] -- will continue daily Miralax as inpatient. - SBO is likely related to previous abd surgeries; also concern for internal hernia. - Advance to full liquid diet as tolerated; d/c IV fluids. - Will require small bowel study -- will complete as inpt on Sunday vs. outpatient pending discharge planning. (2) Leukopenia: - ANC of 670 -- has h/o leukopenia, initially noted in [id number] per patient. - Has been evaluated by hematology as outpatient. - Neutropenic precautions. - Monitor CBC with diff daily. (3) Anemia: - Hemoglobin trending down, likely partially dilutional related to IV fluids. - Monitor H/H daily. (4) Hypotension: - SBP 90's overnight -- will continue to monitor. - Not on anti-hypertensive agents at home. (5) H/O myomectomy: - 2009, noted. (6) History of : - x 1 in 2010. Developed significant anemia following , required transfusion support. (7) CVA (cerebral vascular accident): - Occurred in 2007; currently holding baby aspirin in setting of SBO, can resume at discharge. (8) Protein S deficiency disease: - Questionable history of Protein S deficiency, has been evaluated by hematology. - Follow up as outpatient; on ASA 81 mg daily at home due to h/ CVA. (9) Hepatitis B carrier: - Noted, stable. (10) DVT prophylaxis: - Encourage ambulation; hold Lovenox for possible procedure. Dispo: Med/surg for treatment of SBO; discharge to home likely on 03/27/19. Supervising Physician Co-Signing Physician Notes PA Supervision Note: I did not personally see or examine the patient today, but I verified all brannon points of CATHIE Corral's assessment and plan with the following exceptions/additions: None Subjective Pt. is well overall. She denies abd pain, nausea/vomiting. Had multiple large BMs overnight. Plan to monitor over next 24 hours, discharge possibly on 03/27/19. Review of Systems Review of Systems: All systems reviewed & are unremarkable except as noted in HPI & below Constitutional: no fever, no chills, no fatigue, no weakness and no anorexia Respiratory: no cough, no dyspnea and no dyspnea on exertion Cardiovascular: no chest pain, no palpitations and no edema Gastrointestinal: no abdominal pain, no nausea, no vomiting and no constipation Genitourinary: no difficulty urinating Musculoskeletal: no back pain and no joint pain Integumentary: no non-healing lesions Physical Exam Physical Exam: General: Resting comfortably in no apparent distress HEENT: NC/AT; PERRLA with EOMI; [place] conjunctiva, MMM. No erythema of posterior pharynx Neck: Supple and nontender Cardiac: RRR Lungs: CTA bilaterally Abdomen: Bowel normoactive X 4; Nontender to palpation Extremities: Warm. No edema present Neuro: No focal weakness Skin: No rash Results & Data Vital Signs (Past 12 Hours) Vital Signs Temp Pulse Resp BP Pulse Ox 03/26/19 07:40 36.7 C 56 L 16 102/69 99 Laboratory Results 03/26/19 03/26/19 Range/Units 07:42 07:42 WBC 2.18 L (4.8-10.8) K/uL RBC 3.69 L (4.2-5.4) M/uL Hgb 10.7 L (12.0-16.0) g/dL Hct 32.5 L (37-47) % MCV 88.1 (80-100) fL MCH 29.0 (25-34) pg MCHC 32.9 (32-36) g/dL RDW Std Deviation 41.3 (36.4-46.3) fL RDW Coeff of [place] 12.8 (11.5-14.5) % Plt Count 189 (130-400) K/uL MPV 10.7 H (7.4-10.4) fL Immature Gran % (Auto) 0.0 % Neut % (Auto) 30.7 % Lymph % (Auto) 57.3 % [place] % (Auto) 8.3 % Eos % (Auto) 3.2 % Baso % (Auto) 0.5 % Immature Gran # (Auto) 0.00 (0.00-0.02) K/uL Neut # (Auto) 0.67 L* (1.4-6.5) K/uL Lymph # (Auto) 1.25 (1.2-3.4) K/uL [place] # (Auto) 0.18 (0.11-0.59) K/uL Eos # (Auto) 0.07 (0-0.5) K/uL Baso # (Auto) 0.01 (0-0.2) K/uL Sodium 143 (136-145) mmol/L Potassium 3.7 (3.5-5.1) mmol/L Chloride 112 H (98-107) mmol/L Carbon Dioxide 29 (21-32) mmol/L Anion Gap 3.0 (3-11) BUN 8 D (7-18) mg/dl Creatinine 0.69 (0.6-1.2) mg/dl Est Cr Clr Drug Dosing 92.7 ml/min Est GFR ( Amer) 116.0 Est GFR (Non-Af Amer) 100.1 BUN/Creatinine Ratio 11.1 (10-20) Glucose 80 (70-99) mg/dl Calcium 8.3 L (8.5-10.1) mg/dl Total Bilirubin 0.7 (0.2-1) mg/dl AST 18 (15-37) U/L ALT 27 (12-78) U/L Alkaline Phosphatase 61 (45-117) U/L Total Protein 6.4 (6.4-8.2) gm/dl Albumin 3.1 L (3.4-5.0) gm/dl Globulin 3.3 (2.5-4.0) gm/dl Albumin/Globulin Ratio 0.9 (0.9-2) PG Care Time/CCT Total # of Minutes Spent Total Time Spent with Patient: Total time spent is greater than 50% in coordination of care (as documented) at patient's floor/unit and/or counseling patient:
[2019-03-26] MEDS: ACETAMINOPHEN 325 MG TAB PO PRN (12:35)
--- NOTE | 2019-03-26 15:44 | Gastroenterology Progress Note ---
Date of Service March 26, 2019 Assessment & Plan (1) Partial small bowel obstruction: Clinically resolved. Recommend SBFT. She wants as inpt but tomorrow holiday. If still inpt on 03/28 could do it then. Advance to low fiber diet constipation--imrpoved with bowel prep. continue miralax daily abd pain--SBO and /or constipation--improved neutropenia--defer to hospitalist Subjective cc f/u SBO, obstipation HPI Pt tolerated bowel prep yesterday and had a lot of BMs. Abd pain much improved. Physical Exam Constitutional: WD/WN, vitals as above Respiratory: normal respiratory effort, lungs clear to auscultation Cardiovascular: RRR, no murmur, no edema Gastrointestinal (Abdomen): normal bowel sounds, soft, nontender, no hepatosplenomegaly Psychiatric: A+Ox3, euthymic affect Results & Data Vital Signs (Past 12 Hours) Vital Signs Temp Pulse Pulse Resp BP Pulse Ox 03/26/19 15:02 36.8 C 50 L 17 104/60 100 03/26/19 07:40 36.7 C 56 L 16 102/69 99
[2019-03-27 07:00] LABS: Basophils # (auto) 0.01 K/uL (0-0.2); Basophils % (auto) 0.4 %; Eosinophils # (auto) 0.06 K/uL (0-0.5); Eosinophils % (auto) 2.2 %; Hematocrit (blood only) 33.8 % (37-47); Hemoglobin 11.3 g/dL (12.0-16.0); Lymphocytes # (auto) 1.31 K/uL (1.2-3.4); Lymphocytes % (auto) 49.1 %; Mean Corpuscular Hgb Conc 33.4 g/dL (32-36); Mean Platelet Volume 10.8 fL (7.4-10.4); Monocytes # (auto) 0.28 K/uL (0.11-0.59); Monocytes % (auto) 10.5 %; Neutrophils # (auto) 1.01 K/uL (1.4-6.5); Neutrophils % (auto) 37.8 %; Platelet Count 201 K/uL (130-400); RDW Coefficient of Variation 12.3 % (11.5-14.5); Red Blood Count 3.93 M/uL (4.2-5.4); White Blood Count 2.67 K/uL (4.8-10.8)
[2019-03-27 07:26] LABS: Albumin Level 3.4 gm/dl (3.4-5.0); BUN Creatinine Ratio 10.8 (10-20); Creatinine Clr Calc Pharmacy 85.3 ml/min; Est GFR (African American) 106.2; Est GFR (Non-African American) 91.6; Potassium 3.6 mmol/L (3.5-5.1)
[2019-03-27 07:29] LABS: Albumin Globulin Ratio 0.9 (0.9-2); Bilirubin,Total 0.6 mg/dl (0.2-1); Globulin 3.6 gm/dl (2.5-4.0)
[2019-03-27] MEDS: POLYETHYLENE (MIRALAX) 17 GM PACK PO SCH (08:45)
--- NOTE | 2019-03-27 11:13 | XRay Report ---
KUB HISTORY: Acute generalized abdominal pain with possible obstruction Rule out obstruction COMPARISON: CT abdomen pelvis 03/25/2019. FINDINGS: The bowel gas pattern is non-obstructive. Scattered foci of retained enteric contrast versu s medicinal material throughout the colon. There is no organomegaly. No renal calculi. No ureteral c alculi. No pneumoperitoneum or pneumatosis. No fracture. IMPRESSION: Nonobstructive bowel gas pattern. Electronically signed by: Marito Ovalles M.D. 03/27/2019 11:12 AM
--- NOTE | 2019-03-27 13:44 | Hospitalist Progress Note ---
Date of Service March 27, 2019 Assessment & Plan (1) Partial small bowel obstruction: - CT A/P showed mildly dilated proximal and mid abd small bowel loops -- partial SBO. - General surgery and GI both consulted. - Resolved with Miralax PO and Dulcolax [place] -- will continue daily Miralax. - SBO is likely related to previous abd surgeries; also discussed ?internal hernia on CT scan with surgery, is very unlikely based on clinical picture. - Tolerating low fiber diet. - Plan for SBFT on 03/28/19 followed by discharge to home. (2) Leukopenia: - ANC 1 -- has h/o leukopenia, initially noted in [id number] per patient. - Has been evaluated by hematology as outpatient. - Neutropenic precautions. - Monitor CBC with diff daily. (3) Anemia: - Hemoglobin below baseline, likely related to IV fluids. - Monitor H/H daily. (4) Hypotension: - Now resolved. (5) H/O myomectomy: - 2009, noted. (6) History of : - x 1 in 2010. Developed significant anemia following , required transfusion support. (7) CVA (cerebral vascular accident): - Occurred in 2007; currently holding baby aspirin in setting of SBO, can resume at discharge. (8) Protein S deficiency disease: - Questionable history of Protein S deficiency, has been evaluated by hematology. - Follow up as outpatient; on ASA 81 mg daily at home due to h/ CVA. (9) Hepatitis B carrier: - Noted, stable. (10) DVT prophylaxis: - Encourage ambulation; holding Lovenox due to possible procedure. Dispo: SBO; discharge to home on 03/28/19 following completion of SBFT. Supervising Physician Co-Signing Physician Notes PA Supervision Note: I did not personally see or examine the patient today, but I verified all brannon points of CATHIE Corral's assessment and plan with the following exceptions/additions: None Subjective Pt. is doing well. She denies nausea/vomiting, abd pain. Has had multiple BMs, tolerating diet. KUB was negative. Pt. will need SBFT -- discussed scheduling procedure. She is leaving for vacation on Sunday, will be away for >2 weeks. Will remain inpt until tomorrow, complete on 03/28 then discharge to home if negative. Review of Systems Review of Systems: All systems reviewed & are unremarkable except as noted in HPI & below Constitutional: no fever, no chills, no fatigue, no weakness and no anorexia Respiratory: no cough, no dyspnea and no dyspnea on exertion Cardiovascular: no chest pain, no palpitations and no edema Gastrointestinal: + bloating; no abdominal pain, no nausea, no vomiting, no constipation and no diarrhea/loose stools Genitourinary: no difficulty urinating Musculoskeletal: no back pain and no joint pain Integumentary: no non-healing lesions Allergy / Immunological: no rash Physical Exam Physical Exam: General: Resting comfortably in no apparent distress HEENT: NC/AT; PERRLA with EOMI; [place] conjunctiva, MMM. No erythema of posterior pharynx Neck: Supple and nontender Cardiac: RRR Lungs: CTA bilaterally Abdomen: Slight distention; Bowel normoactive X 4; Nontender to palpation Extremities: Warm. No edema present Neuro: No focal weakness Skin: No rash Results & Data Vital Signs (Past 12 Hours) Vital Signs Temp Pulse Resp BP Pulse Ox 03/27/19 07:07 36.7 C 58 L 16 100/64 100 Laboratory Results 03/27/19 03/27/19 Range/Units 06:41 06:41 WBC 2.67 L (4.8-10.8) K/uL RBC 3.93 L (4.2-5.4) M/uL Hgb 11.3 L (12.0-16.0) g/dL Hct 33.8 L (37-47) % MCV 86.0 (80-100) fL MCH 28.8 (25-34) pg MCHC 33.4 (32-36) g/dL RDW Std Deviation 39.0 (36.4-46.3) fL RDW Coeff of [place] 12.3 (11.5-14.5) % Plt Count 201 (130-400) K/uL MPV 10.8 H (7.4-10.4) fL Immature Gran % (Auto) 0.0 % Neut % (Auto) 37.8 % Lymph % (Auto) 49.1 % [place] % (Auto) 10.5 % Eos % (Auto) 2.2 % Baso % (Auto) 0.4 % Immature Gran # (Auto) 0.00 (0.00-0.02) K/uL Neut # (Auto) 1.01 L (1.4-6.5) K/uL Lymph # (Auto) 1.31 (1.2-3.4) K/uL [place] # (Auto) 0.28 (0.11-0.59) K/uL Eos # (Auto) 0.06 (0-0.5) K/uL Baso # (Auto) 0.01 (0-0.2) K/uL Sodium 141 (136-145) mmol/L Potassium 3.6 (3.5-5.1) mmol/L Chloride 107 (98-107) mmol/L Carbon Dioxide 29 (21-32) mmol/L Anion Gap 5.0 (3-11) BUN 8 (7-18) mg/dl Creatinine 0.75 (0.6-1.2) mg/dl Est Cr Clr Drug Dosing 85.3 ml/min Est GFR ( Amer) 106.2 Est GFR (Non-Af Amer) 91.6 BUN/Creatinine Ratio 10.8 (10-20) Glucose 74 (70-99) mg/dl Calcium 9.0 (8.5-10.1) mg/dl Total Bilirubin 0.6 (0.2-1) mg/dl AST 34 (15-37) U/L ALT 45 (12-78) U/L Alkaline Phosphatase 76 (45-117) U/L Total Protein 7.0 (6.4-8.2) gm/dl Albumin 3.4 (3.4-5.0) gm/dl Globulin 3.6 (2.5-4.0) gm/dl Albumin/Globulin Ratio 0.9 (0.9-2) PG Care Time/CCT Total # of Minutes Spent Total Time Spent with Patient: Total time spent is greater than 50% in coordination of care (as documented) at patient's floor/unit and/or counseling patient:
--- NOTE | 2019-03-27 16:38 | Gastroenterology Progress Note ---
Date of Service March 27, 2019 Assessment & Plan (1) Partial small bowel obstruction: Clinically resolved. Recommend SBFT which is being done tomorrow and likely DC depending on results.. Discussed with patient if that is negative and she wants to pursue other diagnostic possibilities other than adhesions, then a capsule endoscopy as outpt could be done. constipation--imrpoved with bowel prep on 03/25.. continue miralax daily abd pain--SBO and /or constipation--improved neutropenia--defer to hospitalist--improved. Subjective cc f/u SBO, obstipation HPI Pt is tolerating low fiber diet. No abd pain. Physical Exam Constitutional: WD/WN, vitals as above Respiratory: normal respiratory effort, lungs clear to auscultation Cardiovascular: RRR, no murmur, no edema Gastrointestinal (Abdomen): normal bowel sounds, soft, nontender, no hepatosplenomegaly Psychiatric: A+Ox3, euthymic affect Results & Data Vital Signs (Past 12 Hours) Vital Signs Temp Pulse Pulse Resp BP Pulse Ox 03/27/19 15:07 36.5 C 65 17 106/56 L 93 03/27/19 07:07 36.7 C 58 L 16 100/64 100
[2019-03-27] MEDS: ACETAMINOPHEN 325 MG TAB PO PRN (22:02)
[2019-03-28 06:42] LABS: Hematocrit (blood only) 37.2 % (37-47); Hemoglobin 12.7 g/dL (12.0-16.0); Mean Corpuscular Hgb Conc 34.1 g/dL (32-36); Mean Corpuscular Volume 85.9 fL (80-100); Mean Platelet Volume 10.3 fL (7.4-10.4); Platelet Count 200 K/uL (130-400); RDW Coefficient of Variation 12.4 % (11.5-14.5); RDW Standard Deviation 39.3 fL (36.4-46.3); Red Blood Count 4.33 M/uL (4.2-5.4); White Blood Count 2.51 K/uL (4.8-10.8)
[2019-03-28 07:17] LABS: Albumin Level 3.8 gm/dl (3.4-5.0); BUN Creatinine Ratio 17.5 (10-20); Calcium 9.5 mg/dl (8.5-10.1); Creatinine Clr Calc Pharmacy 72.7 ml/min; Est GFR (African American) 87.6; Est GFR (Non-African American) 75.5; Potassium 3.9 mmol/L (3.5-5.1); RBC Morphology Unremarkable
[2019-03-28 07:19] LABS: Albumin Globulin Ratio 0.9 (0.9-2); Bilirubin,Total 0.7 mg/dl (0.2-1); Globulin 4.2 gm/dl (2.5-4.0)
[2019-03-28 07:23] LABS: ALC (manual) 1.42 K/uL (1.2-3.4); Basophils # (manual) 0.02 K/uL (0-0.2); Basophils % (manual) 0.9 %; Eosinophils # (manual) 0.02 K/uL (0-0.5); Eosinophils % (manual) 0.9 %; Lymphocytes # (manual) 1.05 K/uL (1.2-3.4); Lymphocytes % (manual) 41.7 %; Monocytes % (manual) 7.8 %; Neutrophils % (manual) 33.9 %; Reactive Lymphocytes # (manual) 0.37 K/uL
[2019-03-28] MEDS ORDERED: SODIUM CHLORIDE 0.9% 1000ML 1,000 ML IV SCH (08:00)
--- NOTE | 2019-03-28 09:56 | Fluoroscopy Report ---
FL small bowel study CLINICAL HISTORY: Small bowel obstruction right-sided abdominal pain COMPARISON STUDY: CT scan dated 03/25/2019, KUB dated 03/27/2019 FLUOROSCOPY TIME: 36 seconds. NUMBER OF FLUOROSCOPIC IMAGES: 12 FINDINGS: The patient was administered an reveal a small bowel follow-through was performed. There ar e no abnormally dilated loops of jejunum or ileum. The mucosal pattern appears normal. There is no ev idence for abnormal loop separation. Contrast reached the colon 50 minutes. Spot films the terminal i [place] region were within normal limits. IMPRESSION: Normal study Electronically signed by: [place] M.D. 03/28/2019 9:55 AM
[2019-03-28] MEDS: POLYETHYLENE (MIRALAX) 17 GM PACK PO SCH (10:14)
[2019-03-28] MEDS ORDERED: SODIUM CHLORIDE 0.9% 1000ML 500 ML IV ONE (10:41)
--- NOTE | 2019-03-28 14:17 | Discharge Summary ---
Date of Service March 28, 2019 Admission HPI Per Admitting Provider This is a 54 yo F with PMHx of Myomectomy in 2009, history of in 2010, stroke in 2007 which she is on a baby aspirin daily for, protein S deficiency, and hepatitis B carrier who presents with acute onset abdominal pain around 1 AM this morning. Patient has never had abdominal pain like this before. States that it awoke her from sleep and is located in the RLQ and comes in waves. She had one episode of vomiting this morning, no dry heaves or diarrhea. Patient denies hematemesis, melena, bright red blood per rectum. She has felt mildly constipated but had a small bowel movement yesterday morning. On CT scan there is a possible partial small bowel obstruction. Electrolytes and CBC are WNL. General surgery service was contacted by the ER and are on consult. Admission Exam Per Admitting Provider General: awake, alert, no apparent distress, -[place] female, appears much younger than stated age. Head: Normocephalic, atraumatic ENT: PERRL, EOMI, no pharyngeal exudate, mucous membranes moist Chest: Clear to auscultation, on room air, no adventitious breath sounds Cardiac: Regular rate and rhythm, no murmur, no JVD, normal peripheral pulses, good capillary refill Abdominal: Hypoactive x 4 quadrants, soft, mildly distended on the right side, minimally tender to palpation in the RLQ, no rebound, guarding. Extremities: Normal inspection, no peripheral edema or erythema, calfs nontender to palpation Psych: Normal mood and affect Neuro: AAO x 3, strength intact bilaterally and related 5/5, no motor deficits, speech is clear, no peripheral sensory deficits Skin: no rash or erythema Principal Diagnosis Partial small bowel obstruction Discharge Exam General: Resting comfortably in no apparent distress HEENT: NC/AT; PERRLA with EOMI; [place] conjunctiva, MMM. No erythema of posterior pharynx Neck: Supple and nontender Cardiac: RRR Lungs: CTA bilaterally Abdomen: No distention noted; Bowel normoactive X 4; Nontender to palpation Extremities: Warm. No edema present Neuro: No focal weakness Skin: No rash Discharge Data Allergies Allergy/AdvReac Type Severity Reaction Status Date / Time No Known Allergies Allergy Verified 03/25/19 06:22 Consultations 03/25/19 07:11 Consult General Surgery Stat 03/25/19 09:55 ED Decision to Admit Stat 03/25/19 11:13 Consult Case Management - Discharge Planning Routine Consult General Surgery Routine 03/25/19 13:56 Consult Gastroenterology Routine Ordered Studies 03/25/19 05:55 CT abd pelvis IV con only Stat 03/27/19 KUB 03/28/19 08:00 FL small bowel study Routine Hospital Course (1) Partial small bowel obstruction: CT A/P showed mildly dilated proximal and mid abd small bowel loops -- partial SBO. General surgery and GI both consulted. Resolved with Miralax PO and Dulcolax [place] -- continued daily Miralax. SBO is likely related to previous abd surgeries; also discussed ?internal hernia on CT scan with surgery, is very unlikely based on clinical picture. Tolerating low fiber diet. SBFT was negative; will f/u with GI at the end of the month to discuss further studies. (2) Leukopenia: ANC between 600-1000 during this admission -- has h/o leukopenia, initially noted in [id number] per patient. Has been evaluated by hematology as outpatient. Neutropenic precautions. (3) Anemia: Hemoglobin below baseline, likely related to IV fluids. Monitor H/H daily. (4) Hypotension: Hypotensive intermittently during this admission. Received IV fluids. Orthostatics were negative. Encouraged PO fluid intake at home. (5) H/O myomectomy: 2009, noted. (6) History of : x 1 in 2010. Developed significant anemia following , required transfusion support. (7) CVA (cerebral vascular accident): Occurred in 2007; held baby aspirin in setting of SBO, resume at discharge. Is not on statin agent -- will need to discuss starting agent with her PCP. (8) Protein S deficiency disease: Questionable history of Protein S deficiency, has been evaluated by hematology. Follow up as outpatient; on ASA 81 mg daily at home due to h/ CVA. (9) Hepatitis B carrier: Noted, stable. (10) DVT prophylaxis: Encouraged ambulation; held Lovenox due to possible procedure. Discharged to home on 03/28/19. Total Time Total Time Spent Total Time Spent (In Minutes): >30 minutes Discharge Plan Discharge Items Patient Disposition: Home - Self-Care Reason For Visit: SBO Discharge Diagnosis: Partial Small Bowel Obstruction Condition: Good Discharge Goals: Improve disease control, Improve function, Increase independence, Improve nutritional status and Prevent disease Activity: As commented below Exercise/Sports: Gradually increase as tolerated Non-emergency contact: Primary Care Provider Call non-emergency contact if: you have any medication questions, your symptoms worsen, your pain is not controlled, your pain is worsening, your pain is unus ual for you, your pain is concerning for you and you have a fever Follow-up/Referrals: Rom Hoffman MD [Primary Care Provider] - 04/02/19 11:45 am (Please, follow up with Dr. Noble on SundayApril 02 at 11:45 am. *If you need to change this appointment, call the office at [phone].) Regulo Soliman [Physician] - 05/14/19 9:00 am (Please, follow up at [facility] with Dr. Soliman on SundayMay 14 at 9:00 am. *This office is located at [address] [place] [address] - next to [facility]. If you need to change this appointment, call the office at [phone].) Diet: Low Fiber Addtl Provider Instructions: 1. Partial Small Bowel Obstruction * Please continue a bowel regimen to avoid constipation. * Continue a low fiber diet as tolerated at home. * Drink plenty of fluids to avoid dehydration/low blood pressure -- at least 8- 10 glasses per day. * Please follow up with GI at the end of March to discuss completing a capsule endoscopy. * Please follow up with your primary care provider as scheduled on 04/02/19. 2. Leukopenia (Low White Blood Cell Count) * Please follow up with your primary care provider -- you will likely need outpatient lab monitoring. Prescriptions: Continued aspirin [Aspirin Low Dose] 81 mg Tablet,Delayed Release (Dr/Ec) PO DAILY RF: 0 Stand-Alone Forms: Call Back Authorization, [employer] [place]/Other Patient Handouts: Obstruction Sm Bowel Discharge Orders: Discharge Order (Routine); Ordered 03/28/19 Ordered By: Sigrid Payne Admission Data Admit Date/Time: 03/25/19 10:14 Attending Provider: Sigrid Payne Admit Provider: Jamaal Washington Primary Care Provider: Rom Hoffman V. Other Providers: Tara Fajardo ; Bridgett Tanner ; Regulo Soliman ; Danae Corral Service: Surgical Services Other Interventions: Discharge Summary Assessment (RN) Last Done: 03/28/19 12:40 Pending Studies at Discharge: No DC Date/Time DO NOT enter until pt leaves facility: 03/28/19 13:14 Supervising Physician Co-Signing Physician Notes PA Supervision Note: I personally saw and examined the patient. I verified all brannon points and agree with CATHIE Corral with the following exceptions and/or additions: Pt feeling very well on day of discharge. Was carmen regular diet, passing flatus and stool, denied any abd pain. Vitals reviewedRRR no mgr CTAB no wcr Abd +BS soft NT ND Ext no calf tenderness, no edema 54 yo female with a h/o SBO and adhesions, here with PSBO now resolved. SBFT study negative. Possible internal hernia noted on CT was discussed with Gen Surgery as per CATHIE Corral and was not of concern at this time. Follow up with GI as outpt Stable for dc
== END 2019-03-28 13:14 | disposition home or self-care (01) | DRG 389 ==
LOC: ED 05:37 → 3N 10:14 → SUATTDRO 10:14 → 3N 10:43
DX: B18.1 Chronic viral hepatitis B without delta-agent; K56.51 Intestinal adhesions [bands], with partial obstruction; I95.9 Hypotension, unspecified; K56.600 Partial intestinal obstruction, unspecified as to cause; Z86.73 Personal history of transient ischemic attack (TIA), and cerebral infarction without residual deficits; D64.9 Anemia, unspecified; Z98.890 Other specified postprocedural states; D72.819 Decreased white blood cell count, unspecified; Z79.82 Long term (current) use of aspirin; K59.00 Constipation, unspecified; D68.59 Other primary thrombophilia